=== PATIENT | female | born 1965 | race Caucasian/White ===

== ENCOUNTER 2017-01-01 11:15 | Emergency (ER) | payer BC ==
[~2017-01-01] VITALS: Ht 170.2 cm; Wt 61.2 kg
--- NOTE | 2017-01-01 11:29 | NUR ---
PT IS IN ROOM #2A. DR ORTIZ EVALUATED THE PT.
[2017-01-01] MEDS: TDAP DIPH,PERTUSS,TET VAC/PF 0.5 ML DISP.SYRIN IM ONE (11:45)
[2017-01-01] MEDS: LIDOCAINE HCL 1% 20 ML VIAL TP ONE (11:45)
[2017-01-01] MEDS: AMOXICILLIN-CLAVUL 500-125MG TABLET PO ONE (11:46)
[2017-01-01] MEDS ORDERED: TDAP DIPH,PERTUSS,TET VAC/PF 0.5 ML DISP.SYRIN IM ONE (11:49)
--- NOTE | 2017-01-01 11:54 | NUR ---
PT WAS D/C TO HOME. D/C INSTRUCTIONS GIVEN TO THE PT.
[2017-01-01 11:55] VITALS: BP 136/72
[2017-01-01] MEDS ORDERED: AMOXICILLIN-CLAVUL 500-125MG TABLET ONE (12:03)
== END 2017-01-01 11:55 | disposition home or self-care (01) ==
LOC: ER 11:15
DX: S51.811A Laceration without foreign body of right forearm, initial encounter (principal); E03.9 Hypothyroidism, unspecified; W54.0XXA Bitten by dog, initial encounter; Y93.89 Activity, other specified; Y92.89 Other specified places as the place of occurrence of the external cause; Y99.8 Other external cause status
CPT/HCPCS: 12001; 90471; 90715; 99283; A4217; A4663; J3490